=== PATIENT | female | born 1995 | race African-American/Black ===

== ENCOUNTER → 2022-05-02 | Day surgery (SDC) | payer BC ==
[~2022-05-02] MED LIST: Acetaminophen 500 MG TAB ONE; Iron Sucrose Complex 500 MG in Sodium Chloride 0.9% 250 ML 250 ML IVPB SCH; diphenhydrAMINE 25 MG CAP ONE
== END ==
LOC: CSHSDC/OP 09:05
PROVIDERS: ATTEND Obstetrics & Gynecology
DX: O99.019 Anemia complicating pregnancy, unspecified trimester (principal); D64.9 Anemia, unspecified; Z3A.00 Weeks of gestation of pregnancy not specified
CPT/HCPCS: J1756; J7050